=== PATIENT | female | born 1950 | race Caucasian/White ===

== ENCOUNTER 2018-09-19 08:25 | Day surgery (SDC) | payer OTHER ==
[2018-09-14 14:23] VITALS: BMI 21.4
[2018-09-19] MEDS ORDERED: PROPOFOL 20 ML ONE ×2 (10:34)
[2018-09-19 11:14] VITALS: TEMP 98.2
[2018-09-19 11:54] VITALS: BP 110/66; PULSE 76
== END 2018-09-19 11:40 | disposition home or self-care (01) ==
LOC: FASU-ENDO 08:25
PROVIDERS: ATTEND Internal Medicine Gastroenterology
PROC: 0DJD8ZZ Inspection of Lower Intestinal Tract, Via Natural or Artificial Opening Endoscopic (ICD-10-PCS; principal; 2018-09-19 10:41)
DX: Z86.010 Personal history of colon polyps (principal); K57.30 Diverticulosis of large intestine without perforation or abscess without bleeding